=== PATIENT | female | born 2000 | race Hispanic/Latino ===

== ENCOUNTER 2023-11-12 07:45 | Emergency (ER) | payer BC ==
[~2023-11-12] VITALS: Ht 157.5 cm; Wt 57.2 kg
[2023-11-12 08:08] LABS: BASOPHILS # (AUTO) 0.03 K/uL (0.00-0.20); BASOPHILS % (AUTO) 0.2 % (0.0-5.0); EOSINOPHILS # (AUTO) 0.06 K/uL (0.00-0.70); EOSINOPHILS % (AUTO) 0.4 % (0.0-8.0); HEMATOCRIT 40.6 % (36-48); IMMATURE GRANULOCYTE ABSOLUTE 0.06 K/uL (0-1); LYMPHOCYTES # (AUTO) 0.8 K/uL (1.0-4.8); MEAN CORPUSCULAR HEMOGLOBIN 27.3 pg (27.0-33.0); MEAN CORPUSCULAR HGB CONC 32.3 g/dL (32.0-36.0); MEAN CORPUSCULAR VOLUME 84.8 fL (79-99); MONOCYTES # (AUTO) 0.5 K/uL (0.1-1.0); MONOCYTES % (AUTO) 3.4 % (3.0-13.0); NEUTROPHILS # (AUTO) 12.6 K/uL (1.8-7.7); NEUTROPHILS % (AUTO) 89.6 % (40.0-77.0); PLATELET COUNT (AUTO) 237 K/uL (130-400); RED BLOOD CELL COUNT(AUTO) 4.79 MIL/uL (4.00-5.50); RED CELL DISTRIBUTION WIDTH 13.5 % (11.0-15.5)
[2023-11-12] MEDS: LACTATED RINGERS 1000ML 1,503 ML IV ONE (08:21)
[2023-11-12] MEDS: ONDANSETRON 4MG INJ IVP ONE (08:21)
[2023-11-12] MEDS: FAMOTIDINE 20MG VIAL IV ONE (08:21)
[2023-11-12] MEDS: METRONIDAZOLE 500MG/100ML BAG 100 ML IVPB SCH (08:22)
[2023-11-12] MEDS: METRONIDAZOLE 500MG/100ML BAG 100 ML ONE (08:24)
[2023-11-12 08:31] LABS: CREATININE 0.6 mg/dL (0.5-1.5); POTASSIUM 3.9 mmol/L (3.5-5.1)
[2023-11-12 09:03] LABS: ALBUMIN 3.8 g/dL (3.5-5.0); BILIRUBIN,DIRECT 0.2 mg/dL (0.0-0.3); BILIRUBIN,TOTAL 0.6 mg/dL (0.2-1.0); TOTAL PROTEIN, SERUM 7.4 g/dL (6.0-8.3)
[2023-11-12 09:56] LABS: APPEARANCE,URINE CLEAR (CLEAR); BILIRUBIN,URINE NEGATIVE (NEGATIVE); COLOR,URINE LIGHT-YELLOW (YELLOW); GLUCOSE, URINE (UA) NEGATIVE (NEGATIVE); HCG,QUALITATIVE URINE NEGATIVE (NEGATIVE); KETONES,URINE NEGATIVE (NEGATIVE); LEUKOCYTE ESTERASE ,URINE NEGATIVE Leu/uL (NEGATIVE); NITRATE,URINE NEGATIVE (NEGATIVE); OCCULT BLOOD,URINE NEGATIVE (NEGATIVE); PH,URINE 6.5 (5.0-8.0); PROTEIN,URINE NEGATIVE (NEGATIVE); UROBILINOGEN,URINE 0.2 mg/dL (0.2-1.0)
[2023-11-12 09:57] LABS: ADD UA MICROSCOPIC NO
[2023-11-12] MEDS ORDERED: METR-172 PO (10:35)
[2023-11-12] MEDS ORDERED: ONDA4TAB10 PO (10:35)
[2023-11-12] MEDS ORDERED: CIPR-278 PO (10:35)
[2023-11-12 11:15] VITALS: BP 121/68; PULSE 84; RESP 16; O2SAT 100
== END 2023-11-12 11:28 | disposition home or self-care (01) ==
LOC: EDH 07:45
DX: A04.9 Bacterial intestinal infection, unspecified (principal)
CPT/HCPCS: 99284; 96365; 96375; 96366; 80076; 80048; 83690; 85025; 81003; 81025; 36415; J7120; J3490 ×2; J2405

== ENCOUNTER 2023-11-29 00:05 | Emergency (ER) | payer BC ==
[~2023-11-29] VITALS: Ht 157.5 cm; Wt 57.2 kg
[~2023-11-29 00:05] MED LIST: CIPR-278 PO; METR-172 PO; ONDA4TAB10 PO
[2023-11-29 00:06] VITALS: BP 145/84; PULSE 88; RESP 16
[2023-11-29 00:30] LABS: APPEARANCE,URINE CLEAR (CLEAR); BILIRUBIN,URINE NEGATIVE (NEGATIVE); COLOR,URINE COLORLESS (YELLOW); GLUCOSE, URINE (UA) NEGATIVE (NEGATIVE); KETONES,URINE NEGATIVE (NEGATIVE); LEUKOCYTE ESTERASE ,URINE NEGATIVE Leu/uL (NEGATIVE); NITRATE,URINE NEGATIVE (NEGATIVE); OCCULT BLOOD,URINE NEGATIVE (NEGATIVE); PROTEIN,URINE NEGATIVE (NEGATIVE); UROBILINOGEN,URINE 0.2 mg/dL (0.2-1.0)
[2023-11-29 00:33] LABS: ADD UA MICROSCOPIC NO; HCG,QUALITATIVE URINE NEGATIVE (NEGATIVE)
[2023-11-29 00:34] LABS: CREATININE 0.7 mg/dL (0.5-1.5)
[2023-11-29 00:38] LABS: ALBUMIN 3.9 g/dL (3.5-5.0); BILIRUBIN,TOTAL 0.4 mg/dL (0.2-1.0); TOTAL PROTEIN, SERUM 7.3 g/dL (6.0-8.3)
[2023-11-29 00:51] LABS: BASOPHILS # (AUTO) 0.08 K/uL (0.00-0.20); BASOPHILS % (AUTO) 0.8 % (0.0-5.0); EOSINOPHILS # (AUTO) 0.13 K/uL (0.00-0.70); EOSINOPHILS % (AUTO) 1.3 % (0.0-8.0); HEMATOCRIT 37.7 % (36-48); IMMATURE GRANULOCYTE ABSOLUTE 0.04 K/uL (0-1); LYMPHOCYTES # (AUTO) 3.2 K/uL (1.0-4.8); LYMPHOCYTES % (AUTO) 32.8 % (21.0-51.0); MEAN CORPUSCULAR HEMOGLOBIN 26.9 pg (27.0-33.0); MEAN CORPUSCULAR HGB CONC 32.4 g/dL (32.0-36.0); MONOCYTES # (AUTO) 0.7 K/uL (0.1-1.0); MONOCYTES % (AUTO) 6.8 % (3.0-13.0); NEUTROPHILS # (AUTO) 5.6 K/uL (1.8-7.7); NEUTROPHILS % (AUTO) 57.9 % (40.0-77.0); PLATELET COUNT (AUTO) 259 K/uL (130-400); RED BLOOD CELL COUNT(AUTO) 4.54 MIL/uL (4.00-5.50); RED CELL DISTRIBUTION WIDTH 13.2 % (11.0-15.5); WHITE BLOOD COUNT (AUTO) 9.8 K/uL (4.8-10.8)
[2023-11-29] MEDS: LIDOCAINE HCL 2% VISCOUS 15 ML UDCUP PO ONE (01:21)
[2023-11-29] MEDS: MAG/ALUM/SIMETH 30 ML UDCUP PO ONE (01:21)
[2023-11-29] MEDS ORDERED: MAG-55 PO (02:01)
[2023-11-29] MEDS ORDERED: OMEP40CA21 PO (02:01)
== END 2023-11-29 02:08 | disposition home or self-care (01) ==
LOC: EDH 00:05
DX: K29.70 Gastritis, unspecified, without bleeding (principal)
CPT/HCPCS: 36415; 80053; 81003; 81025; 83690; 85025

== ENCOUNTER 2025-02-04 10:18 | Emergency (ER) | payer SELFPAY ==
[~2025-02-04] VITALS: Ht 157.5 cm; Wt 60.3 kg
[~2025-02-04 10:18] MED LIST changes: +MAG-55 PO; +OMEP40CA21 PO; +ONDA-243 PO; -ONDA4TAB10 PO
--- NOTE | 2025-02-04 10:26 | ERN ---
General Chief Complaint: Abdominal Pain Stated Complaint: LUQ PAIN Time Seen by MD: 10:20 Time Seen by Midlevel: 10:20 Source: patient History of Present Illness Initial Comments The patient is a healthy 24-year-old female presenting to the emergency department with left upper quadrant abdominal pain. The pain started today in his intermittent in nature. She had one episode of sharp left upper quadrant abdominal pain that made it difficult for her to breathe so she decided to rep ort to the ER for further evaluation. She does report waking up this morning and having mild diarrhea. Denies any nausea, vomiting, fever, chills, or any other symptoms at this time. Allergies: Coded Allergies: No Known Drug Allergies (Unverified Allergy, Unknown, 11/12/23) Home Meds Active Scripts Omeprazole (Omeprazole) 40 Mg Capsule.dr, 40 MG PO DAILY, #30 CAP Prov:GABBY RANDHAWA MD 11/29/23 Mag Hydrox/Al Hydrox/Simeth (Maalox Maximum Strength Susp) 400 Mg-400 Mg-40 Mg/5 Ml Oral.susp, 30 ML PO 5X/DAY, #355 ML Prov:GABBY RANDHAWA MD 11/29/23 Ondansetron (Ondansetron Odt) 4 Mg Tab.rapdis, 4 MG PO Q6HPRN PRN for nausea, #16 TAB 2 Refills Prov:ZACH ARREDONDO Sr., MD 11/12/23 Ciprofloxacin HCl (Cipro) 500 Mg Tablet, 1 TAB PO BID for 10 Days, #20 TAB 0 Refills Prov:ZACH ARREDONDO Sr., MD 11/12/23 Metronidazole (Metronidazole) 500 Mg Tablet, 500 MG PO TID for 10 Days, #30 TAB 0 Refills Prov:ZACH ARREDONDO Sr., MD 11/12/23 Past Medical History Past Medical History: No Pertinent History Past Surgical History: None Family History Family History: Negative Social History Social History: Lives with family ROS Dictation CONSTITUTIONAL: Negative except for HPI HEAD/FACE: Negative except for HPI EENT: Negative except for HPI RESPIRATORY: Negative except for HPI GASTROINTESTINAL/ABDOMINAL: Negative except for HPI GENITOURINARY: Negative except for HPI MUSCULOSKELETAL: Negative except for HPI INTEGUMENTARY: Negative except for HPI NEUROLOGICAL/PSYCH: Negative except for HPI HEMATOLOGIC/LYMPHATIC: Negative except for HPI All Systems Negative, Except as noted above. 13 point review of systems assessed and all negative except for above. Physical Exam Physical Exam Dictation Vital Signs reviewed General Appearance: Alert, oriented x 3, no acute distress, well developed, nourished. Head and Face: non-traumatic. Eyes: PERRL, pink conjunctivas, eyelid no trauma, anterior chamber with arcus senilis. Ears: Pinnas intact and no signs of trauma or erythema ear canals clear and no discharge TM no erythema Nose: No discharge, no bleeding. Oropharynx: Mouth normal, tongue pink, pharynx clear,no erythema, tonsils no exudates, no abscesses noted, mucous membrane moist Neck: Supple, non-tender, no thyromegaly, no masses, no JVD, no bruits Breast:Deferred Chest:No tenderness, no crepitus, no paradoxical movement, no retractions Lungs:Clear, well-ventilated, symmetric, no rales, no wheezing, no rhonchi, no stridor, good breath sounds bilaterally Heart: Regular rate, regular rhythm, no murmur, no gallops Vascular: no peripheral edema, Abdomen: Soft, positive bowel sounds, nondistended, no guarding, nontender, no rebound, no masses no hepatomegaly, no splenomegaly, no Post's sign, no hernias. Rectal: Deferred Genital: Deferred Neurological: Normal speech, motor function intact, sensory function intact Musculoskeletal: Neck nontender, full range of motion, back nontender, full range of motion, Extremities: nontender, full range of motion Skin: Color pink, dry, no turgor, no rash, no lacerations, no abrasions, no contusions. Lymphatic: Deferred Results Laboratory and Microbiology Lab and Micro Result Laboratory Tests Test 02/04/25 10:57 White Blood Count 5.8 K/uL (4.8-10.8) Red Blood Count 5.06 MIL/uL (4.00-5.50) Hemoglobin 13.9 g/dL (12.0-16.0) Hematocrit 43.7 % (36-48) Mean Corpuscular Volume 86.4 fL (79-99) Mean Corpuscular Hemoglobin 27.5 pg (27.0-33.0) Mean Corpuscular Hemoglobin Concent 31.8 g/dL (32.0-36.0) L Red Cell Distribution Width 13.2 % (11.0-15.5) Platelet Count 214 K/uL (130-400) Mean Platelet Volume 9.2 fL (7.5-10.5) Immature Granulocyte % (Auto) 0.5 % (0-1) Neutrophils (%) (Auto) 78.4 % (40.0-77.0) H Lymphocytes (%) (Auto) 14.1 % (21.0-51.0) L Monocytes (%) (Auto) 5.6 % (3.0-13.0) Eosinophils (%) (Auto) 0.9 % (0.0-8.0) Basophils (%) (Auto) 0.5 % (0.0-5.0) Neutrophils # (Auto) 4.5 K/uL (1.8-7.7) Lymphocytes # (Auto) 0.8 K/uL (1.0-4.8) L Monocytes # (Auto) 0.3 K/uL (0.1-1.0) Eosinophils # (Auto) 0.05 K/uL (0.00-0.70) Basophils # (Auto) 0.03 K/uL (0.00-0.20) Absolute Immature Granulocyte (auto 0.03 K/uL (0-1) Nucleated Red Blood Cells 0.0 % (0.0-0.19) Sodium Level 137 mmol/L (136-145) Potassium Level 3.9 mmol/L (3.5-5.1) Chloride Level 102 mmol/L (101-111) Carbon Dioxide Level 29 mmol/L (21-32) Blood Urea Nitrogen 9 mg/dL (7-18) Creatinine 0.6 mg/dL (0.5-1.0) Glomerular Filtration Rate Calc 127 mL/min (>90) Random Glucose 99 mg/dL (70-105) Total Calcium 8.6 mg/dL (8.5-10.1) Total Bilirubin 0.5 mg/dL (0.2-1.0) Direct Bilirubin 0.1 mg/dL (0.0-0.3) Aspartate Amino Transf (AST/SGOT) 17 U/L (10-37) Alanine Aminotransferase (ALT/SGPT) 18 U/L (12-78) Alkaline Phosphatase 74 U/L (50-136) Total Protein 8.0 g/dL (6.0-8.3) Albumin 4.0 g/dL (3.5-5.0) Lipase 38 U/L (16-77) Serum Test, Qualitative NEGATIVE (NEGATIVE) Labs Reviewed?: Yes MDM MDM: Differential diagnosis: Pancreatitis, gastritis, gastroenteritis There are no social concerns with this patient. Prescription drug management Prescriptions will include: None Medical management and examination interpretation discussions were had by me with other qualified healthcare professionals as indicated for the patient's care. ED Course Orders Procedure Category Date Status Time Cbc With Differential LAB 02/04/25 Complete 10:22 Basic Metabolic Panel LAB 02/04/25 Complete 10:22 Hepatic Function Panel LAB 02/04/25 Complete 10:22 Lipase LAB 02/04/25 Complete 10: Chest 1vw RAD 02/04/25 Taken 10: Testing, LAB 02/04/25 Complete Serum Hcg 10:22 Vital Signs Date Time Temp Pulse Resp B/P (MAP) Pulse Ox O2 Delivery O2 Flow Rate FiO2 02/04/25 10:19 98.8 90 16 113/86 99 Room Air 0 DX & DISP Disposition: Discharge Departure Impression: Primary Impression: Left upper quadrant abdominal pain Condition: Stable Additional Instructions: Your blood work today is unremarkable. Your CBC shows no evidence of anemia or infection. Your chemistry panel reveals normal electrolytes, normal kidney function, normal liver function tests, and a normal lipase level which rules out pancreatitis. I obtained a chest x-ray to evaluate your left lower lung. Your chest x-ray is unremarkable. You will need to follow up with your primary care doctor outpatient for further evaluation. Referrals: SELF,REFERRAL (PCP) Time of Disposition: 11:40 I have reviewed the case, and I agree with, Diagnosis and Plan I performed the substantive portion of the visit. I have reviewed and personally made and approve the management plan that is documented in the note by myself or the GABBY. I acknowledge for responsibility for the patient's management plan. HEMANT CHIN February 04, 2025 10:26
[2025-02-04 11:12] LABS: BASOPHILS # (AUTO) 0.03 K/uL (0.00-0.20); BASOPHILS % (AUTO) 0.5 % (0.0-5.0); CREATININE 0.6 mg/dL (0.5-1.0); EOSINOPHILS # (AUTO) 0.05 K/uL (0.00-0.70); EOSINOPHILS % (AUTO) 0.9 % (0.0-8.0); HEMATOCRIT 43.7 % (36-48); IMMATURE GRANULOCYTE ABSOLUTE 0.03 K/uL (0-1); LYMPHOCYTES # (AUTO) 0.8 K/uL (1.0-4.8); LYMPHOCYTES % (AUTO) 14.1 % (21.0-51.0); MEAN CORPUSCULAR HEMOGLOBIN 27.5 pg (27.0-33.0); MEAN CORPUSCULAR HGB CONC 31.8 g/dL (32.0-36.0); MEAN CORPUSCULAR VOLUME 86.4 fL (79-99); MONOCYTES # (AUTO) 0.3 K/uL (0.1-1.0); MONOCYTES % (AUTO) 5.6 % (3.0-13.0); NEUTROPHILS # (AUTO) 4.5 K/uL (1.8-7.7); NEUTROPHILS % (AUTO) 78.4 % (40.0-77.0); PLATELET COUNT (AUTO) 214 K/uL (130-400); POTASSIUM 3.9 mmol/L (3.5-5.1); RED BLOOD CELL COUNT(AUTO) 5.06 MIL/uL (4.00-5.50); RED CELL DISTRIBUTION WIDTH 13.2 % (11.0-15.5); WHITE BLOOD COUNT (AUTO) 5.8 K/uL (4.8-10.8)
[2025-02-04 11:16] LABS: BILIRUBIN,DIRECT 0.1 mg/dL (0.0-0.3); BILIRUBIN,TOTAL 0.5 mg/dL (0.2-1.0)
--- NOTE | 2025-02-04 11:33 | NUR ---
in radiology at this time
[2025-02-04 11:47] VITALS: BP 110/84; PULSE 88; RESP 16; TEMP 98.8; O2SAT 99
--- NOTE | 2025-02-04 12:17 | HMCIMG ---
CHEST 1VW HISTORY: Chest wall pain COMPARISON: None FINDINGS: A frontal projection of the chest was obtained. No acute pulmonary infiltrates is seen. The heart is normal in size. Prominent interstitial markings are seen. No evidence of aortic calcification is seen. IMPRESSION: 1. No acute pulmonary infiltrate is seen.
== END 2025-02-04 11:53 | disposition home or self-care (01) ==
LOC: EDH 10:18
DX: R10.12 Left upper quadrant pain (principal); Z79.899 Other long term (current) drug therapy
CPT/HCPCS: 36415; 71045; 80048; 80076; 83690; 84703; 85025; 99284